=== PATIENT | female | born 1955 | race Hispanic/Latino ===

== ENCOUNTER 2017-03-23 21:29 | Emergency (ER) | payer BC ==
[2017-03-23] MEDS ORDERED: Hydrocodone/Acetaminophen 5 mg /300 mg Tab PO STA (23:22)
[2017-03-23] MEDS ORDERED: Hydrocodone/Acetaminophen 5 mg /300 mg Tab PO ONE (23:31)
--- NOTE | 2017-03-23 23:36 | C.PDOC ---
History Of Present Illness 62 year old female who presents to the ER with a complaint of left shoulder pain that worsens with movement, since this afternoon. Patient also complains of lower back pain that is similar to previous episodes. Shoulder pain occasionally radiates to her chest/upper back. Patient denies chest pain, SOB, cough, fever, palpitations, falls/injuries. She states she took tylenol#3 without improvement. Time Seen by Provider: 03/23/17 22:18 Chief Complaint (Nursing): Upper Extremity Problem/Injury History Per: Patient History/Exam Limitations: no limitations Onset/Duration Of Symptoms: Hrs (Since afternoon) Current Symptoms Are (Timing): Still Present Quality: "Pain" Severity: Moderate Exacerbating Factor(s): Movement Past Medical History Reviewed: Historical Data, Nursing Documentation, Vital Signs Vital Signs: Last Vital Signs Temp 98 F 03/24/17 01:05 Pulse 82 03/24/17 01:05 Resp 20 03/24/17 01:05 BP 128/72 03/24/17 01:05 Pulse Ox 99 03/24/17 02:32 - Medical History PMH: Gastritis, HTN, Hypothyroidism Surgical History: No Surg Hx Family History: States: No Known Family Hx - Social History Hx Alcohol Use: No Hx Substance Use: No - Immunization History Hx Tetanus Toxoid Vaccination: No Hx Influenza Vaccination: Yes Hx Pneumococcal Vaccination: No Review Of Systems Except As Marked, All Systems Reviewed And Found Negative. Constitutional: Negative for: Fever, Chills Cardiovascular: Negative for: Chest Pain, Palpitations Respiratory: Negative for: Cough, Shortness of Breath Gastrointestinal: Negative for: Nausea, Vomiting Musculoskeletal: Positive for: Shoulder Pain (Left. Occasional radiation to chest.), Back Pain (Lower) Skin: Negative for: Rash Neurological: Negative for: Weakness, Numbness Physical Exam - Physical Exam Appears: Well, Non-toxic, Other (Mild to moderate pain) Skin: Normal Color, Warm, Dry, No Rash Head: Atraumatic, Normacephalic Eye(s): bilateral: Normal Inspection Oral Mucosa: Moist Neck: Normal, Normal ROM Chest: Symmetrical, No Tenderness Cardiovascular: Rhythm Regular Respiratory: Normal Breath Sounds, No Rales, No Rhonchi, No Wheezing Gastrointestinal/Abdominal: Normal Exam, Bowel Sounds, Soft, No Tenderness Back: No CVA Tenderness Extremity: Normal ROM (Left shoulder), Tenderness (Left anterior shoulder/ proximal humerus tender to palpation), Capillary Refill (< 2 sec all digits ), No Deformity (Left shoulder), No Swelling (Left shoulder) Extremity: Bilateral: Normal Color And Temperature Pulses: Left Radial: Normal, Right Radial: Normal Neurological/Psych: Oriented x3, Normal Sensation Gait: Steady ED Course And Treatment ECG: Interpreted By Me, Viewed By Me (NSR 71 bpm, left axis deviation, no acute ST/T wave changes) ECG Interpretation: No Acute Changes Interpretation Of ECG: Normal axis. No acute ST/T wave changes. O2 Sat by Pulse Oximetry: 99 (Room air) Pulse Ox Interpretation: Normal - Other Rad X-ray of left shoulder X-Ray: Interpreted by Me, Viewed By Me Interpretation: Arthritic changes, calcific tendonitis. Progress Note: Patient given IM toradol and PO flexeril for pain. Xray of left shoulder ordred and reviewed. EKG done during triage. 23:55- Patient's pain has improved. She was placed in shoulder sling by nurse, and given Rxs for Naprosyn and Vicodin. Patient instructed to follow up with orthopedics within 1 week, and she understands she should return to ED if symptoms worsen. Reevaluation Time: 23:20 Reassessment Condition: Unchanged (Patient still c/o left shoulder pain, PO Vicodin ordered.) Disposition Counseled Patient/Family Regarding: Studies Performed, Diagnosis, Need For Followup, Rx Given - Disposition Referrals: Curtis Ortiz III, MD [Staff Provider] - [facility] [Outside] [facility] [Outside] Disposition: HOME/ ROUTINE Disposition Time: 23:55 Condition: STABLE Additional Instructions: FOLLOW UP WITH ORTHOPEDICS WITHIN 1 WEEK USE MEDICATIONS NEEDED RETURN TO EMERGENCY ROOM IF SYMPTOMS WORSEN Prescriptions: Hydrocodone/Acetaminophen [Hydrocodon-Acetaminophen 5-325] 1 each PO Q6 PRN #12 tablet PRN Reason: Pain, Moderate (4-7) Naproxen [Naprosyn Tab] 375 mg PO BID PRN #20 tab PRN Reason: pain Instructions: Calcific Tendinitis (ED), Shoulder Pain (ED) Print Language: INDIAN - POA Present On Arrival: None - Clinical Impression Clinical Impression: Calcific tendonitis of left shoulder, Shoulder pain, left, Low back pain - Scribe Statement The provider has reviewed the documentation as recorded by the Scribe Bruno Louise All medical record entries made by the Haydeeibchaim were at my direction and personally dictated by me. I have reviewed the chart and agree that the record accurately reflects my personal performance of the history, physical exam, medical decision making, and the department course for this patient. I have also personally directed, reviewed, and agree with the discharge instructions and disposition.
[2017-03-24 01:06] VITALS: BP 128/72; PULSE 82; RESP 20; TEMP 98
[2017-03-24 02:24] VITALS: O2SAT 99
--- NOTE | 2017-03-24 12:43 | RAD ---
PROCEDURE: Radiographs of the Left Shoulder HISTORY: left shoulder/humerus pain No antecedent history of trauma provided. COMPARISON: No prior. FINDINGS: BONES: No acute fractures. Evidence of calcific tendinosis. JOINTS: Normal. Glenohumeral and acromioclavicular joints preserved. No osteoarthritis. SOFT TISSUES: Normal. OTHER FINDINGS: None. IMPRESSION: No acute findings related to/accounting for the clinical presentation. Concordant results with the preliminary interpretation rendered by the emergency department physician procedure.
== END 2017-03-24 01:05 | disposition home or self-care (01) ==
LOC: C.ER 21:29
DX: M75.32 Calcific tendinitis of left shoulder (principal); M54.5 Low back pain
CPT/HCPCS: 73030; 96372; 99283; J1885

== ENCOUNTER 2017-08-15 12:16 | Emergency (ER) | payer BC ==
[2017-08-15 12:40] VITALS: TEMP 98.1
[2017-08-15 13:49] VITALS: PULSE 63; RESP 18; O2SAT 97
[2017-08-15] MEDS ORDERED: Oxycodone/Acetaminophen 5/325 mg Tab PO STA (13:54)
--- NOTE | 2017-08-15 14:00 | C.PDOC ---
History Of Present Illness 62 y/o female with Hx of pneumonectomy and lung carcinoma presents to ED with complaints of dizziness and chronic chest wall pain radiating to back since earlier today while at work. Patient states she was seen by the nurse and told she had a high blood pressure 215/114 but reports she is compliant with medication and took it today at 5:30 am prior to going to work. Patient states that she developed a dry cough several days ago and was seen in the office by Dr Han 2 days ago. She notified him today and was advised to come to ed for further evaluation. Patient reports she was seen at [facility] in April and was told she had "a little heart attack" and discharged home, given aspirin and at baseline currently takes two percocet daily for chronic chest wall pain. Patient denies blurry vision, headache, abdominal pain or any other complaints at this time. Time Seen by Provider: 08/15/17 13:20 Chief Complaint (Nursing): Dizziness/Lightheaded History Per: Patient History/Exam Limitations: no limitations Onset/Duration Of Symptoms: Days Current Symptoms Are (Timing): Still Present Past Medical History Reviewed: Historical Data, Nursing Documentation, Vital Signs Vital Signs: Last Vital Signs Temp 98.1 F 08/15/17 12:33 Pulse 63 08/15/17 13:41 Resp 18 08/15/17 13:41 BP 172/76 H 08/15/17 13:41 Pulse Ox 97 08/15/17 15:44 - Medical History PMH: Gastritis, HTN, Hypothyroidism Other PMH: Lung Cancer Other Surgeries: RUL Pneumonectomy Family History: States: No Known Family Hx - Social History Hx Tobacco Use: Yes Hx Alcohol Use: No Hx Substance Use: No - Immunization History Hx Tetanus Toxoid Vaccination: No Hx Influenza Vaccination: Yes Hx Pneumococcal Vaccination: No Review Of Systems Except As Marked, All Systems Reviewed And Found Negative. Constitutional: Negative for: Fever, Chills Cardiovascular: Positive for: Chest Pain Respiratory: Positive for: Cough, Pleuritic Pain Gastrointestinal: Negative for: Nausea, Vomiting, Abdominal Pain Genitourinary: Negative for: Dysuria, Frequency, Hematuria Musculoskeletal: Positive for: Back Pain Skin: Negative for: Rash Neurological: Positive for: Dizziness. Negative for: Weakness, Numbness Physical Exam - Physical Exam Appears: Non-toxic, Other (uncomfortable) Skin: Normal Color, Warm, Dry, No Rash Head: Atraumatic, Normacephalic Oral Mucosa: Moist Neck: Normal ROM, Supple Chest: Symmetrical Cardiovascular: Rhythm Regular, No Murmur Respiratory: Normal Breath Sounds, No Rales, Rhonchi (Left base), No Wheezing Gastrointestinal/Abdominal: Soft, No Tenderness, No Guarding, No Rebound Back: Normal Inspection Extremity: Normal ROM, Capillary Refill (<2 seconds), No Swelling Neurological/Psych: Oriented x3, Normal Speech, Normal Cognition, Normal Motor, Normal Sensation ED Course And Treatment - Laboratory Results Result Diagrams: 08/15/17 14:12 08/15/17 14:12 Lab Interpretation: No Acute Changes ECG: Interpreted By Me ECG Rhythm: Sinus Rhythm (with left anterior block), ST/T Changes (T wave inversions V1-3) ECG Interpretation: No Acute Changes O2 Sat by Pulse Oximetry: 97 (RA) Pulse Ox Interpretation: Normal - Radiology CXR: Interpreted by Me CXR Interpretation: Yes: No Acute Disease (unchanged since 11/16/2016) Reevaluation Time: 16:08 Reassessment Condition: Improved (Patient is resting quietly. BP 180/88. She states that her pain is at baseline and she has been managing this with Dr Hna.) Disposition Counseled Patient/Family Regarding: Studies Performed, Diagnosis, Need For Followup - Disposition Referrals: Omid Han MD [Medical Doctor] - Disposition: HOME/ ROUTINE Disposition Time: 16:12 Condition: IMPROVED Additional Instructions: Follow up with Dr Han to adjust your blood pressure medications. Instructions: Chest Wall Pain (ED), Hypertension (ED) Forms: [facility] ([place]i) - Clinical Impression Clinical Impression: Chest wall pain, Hypertension - Scribe Statement The provider has reviewed the documentation as recorded by the Scribchaim Rosales All medical record entries made by the Scribe were at my direction and personally dictated by me. I have reviewed the chart and agree that the record accurately reflects my personal performance of the history, physical exam, medical decision making, and the department course for this patient. I have also personally directed, reviewed, and agree with the discharge instructions and disposition.
[2017-08-15 14:16] LABS: BASO % 0.5 % (0.0-2.0); EOS # 0.1 K/uL (0.0-0.7); EOS % 0.6 % (0.0-4.0); HEMATOCRIT 44.8 % (34.0-47.0); LYMPH # 2.5 K/uL (1.0-4.3); LYMPH % 27.8 % (20.0-40.0); MEAN CORPUSCULAR HEMOGLOBIN 31.7 pg (27.0-31.0); MEAN CORPUSCULAR HGB CONC 34.8 g/dL (33.0-37.0); MEAN PLATELET VOLUME 7.9 fL (7.2-11.7); MONO # 0.7 K/uL (0.0-0.8); MONO % 7.8 % (0.0-10.0); NRBC % 0.1 % (0.0-2.0); RED CELL DISTRIBUTION WIDTH 13.7 % (11.5-14.5)
[2017-08-15 14:25] LABS: CHLORIDE 100 mmol/L (98-107); POTASSIUM 3.6 mmol/L (3.6-5.2); SODIUM 140 mmol/L (132-148)
[2017-08-15 14:27] LABS: BILIRUBIN,TOTAL 0.8 mg/dL (0.2-1.3); GFR AFRICAN-AMERICAN > 60
[2017-08-15 14:28] LABS: ALB/GLOB RATIO 1.2 (1.0-2.1); ALKALINE PHOSPHATASE 79 U/L (38-126); ALT/SGPT 24 U/L (9-52); AST/SGOT 25 U/L (14-36); BLOOD UREA NITROGEN 13 mg/dL (7-17); CALCIUM 9.1 mg/dl (8.6-10.4); CARBON DIOXIDE 27 mmol/L (22-30); GLUCOSE,RANDOM 63 mg/dL (65-105); TOTAL PROTEIN 7.1 g/dL (6.3-8.3)
[2017-08-15] MEDS ORDERED: Oxycodone/Acetaminophen 5/325 mg Tab ONE (14:55)
[2017-08-15 16:22] VITALS: BP 180/88
--- NOTE | 2017-08-15 16:39 | RAD ---
HISTORY: Shortness of breath. COMPARISON: 11/16/2016 TECHNIQUE: Chest PA and lateral FINDINGS: LUNGS: Postoperative changes right lung, right aj thorax. PLEURA: Stable pleural thickening right pleural space. CARDIOVASCULAR: No radiographic findings to suggest acute or significant cardiovascular disease. OSSEOUS STRUCTURES: Status post carotid 5th rib resection VISUALIZED UPPER ABDOMEN: Normal. OTHER FINDINGS: None. IMPRESSION: No active disease. Stable postoperative findings.
--- NOTE | 2017-08-20 13:03 | CARD ---
APPROVED REPORT EKG Measurement Heart [id number] <Conclusion> Normal sinus rhythm Left anterior fascicular block T wave abnormality, consider anterior ischemia Abnormal ECG
== END 2017-08-15 16:23 | disposition home or self-care (01) ==
LOC: C.ER 12:16
DX: R07.89 Other chest pain (principal); I10 Essential (primary) hypertension